=== PATIENT | male | born 1980 | race American Indian/Alaskan Native ===

== ENCOUNTER 2019-02-13 17:37 | Emergency (ER) | payer OTHER ==
[2019-02-13 18:08] VITALS: BP 122/84; PULSE 88; RESP 19; TEMP 98.8; O2SAT 98
[2019-02-13] MEDS ORDERED: Lidocaine Hydrochloride 10 ML INJ ONE (18:14)
[2019-02-13] MEDS ORDERED: Lidocaine 1% Inj (20ml) INFIL ONE (18:16)
[2019-02-13] MEDS ORDERED: Tdap Vaccine 0.5 ml Vial (10-64 yrs) IM ONE ×2 (18:19→18:25)
--- NOTE | 2019-02-13 18:21 | C.PDOC ---
History Of Present Illness 38 y/o male presents to the ER complaining of laceration to right hand. Patient states that he cut his hand while he was cleaning a grill. Patient denies having fever,chills, and drainage. Time Seen by Provider: 02/13/19 18:07 Chief Complaint (Nursing): Abnormal Skin Integrity History Per: Patient History/Exam Limitations: no limitations Onset/Duration Of Symptoms: Hrs Current Symptoms Are (Timing): Still Present Severity: Moderate Past Medical History Reviewed: Historical Data, Nursing Documentation, Vital Signs Vital Signs: Last Vital Signs Temp 98.8 F 02/13/19 18:01 Pulse 88 02/13/19 18:01 Resp 19 02/13/19 18:01 BP 122/84 02/13/19 18:01 Pulse Ox 98 02/13/19 18:01 - Medical History PMH: No Chronic Diseases Surgical History: No Surg Hx Family History: States: No Known Family Hx - Social History Hx Alcohol Use: Yes Hx Substance Use: Yes - Immunization History Hx Tetanus Toxoid Vaccination: No Hx Influenza Vaccination: No Hx Pneumococcal Vaccination: No Review Of Systems Except As Marked, All Systems Reviewed And Found Negative. Constitutional: Negative for: Fever, Chills Skin: Positive for: Other (laceration to right hand) Physical Exam - Physical Exam Appears: Non-toxic, No Acute Distress Skin: Normal Color, Warm, Dry, Other (4 cm laceration to dorsum of right hand between 2nd and 3rd digits involving subcutaneous tissue) Head: Atraumatic, Normacephalic Eye(s): bilateral: Normal Inspection Nose: Normal Oral Mucosa: Moist Neck: Supple Chest: Symmetrical Extremity: Normal ROM (no decreased flexion or extension in right hand), Capillary Refill (< 2 seconds) Neurological/Psych: Oriented x3, Normal Speech ED Course And Treatment O2 Sat by Pulse Oximetry: 98 (RA) Pulse Ox Interpretation: Normal Laceration - Laceration Repair Right Hand Wound Length (In cm): 4 cm Description Of Wound: Linear Wound Cleansed With: Betadine, Sterile Saline Anesthesia: Lidocaine 2% Wound Examination: Irrigated With Saline, No FB With Wound Exploration Wound Closure: [place] (7 bhavesh) Wound Complexity: Simple Medical Decision Making Medical Decision Making: R hand dorsum lac 4 cm closed with bhavesh motrin Tdap Disposition Doctor Will See Patient In The: Office Counseled Patient/Family Regarding: Studies Performed, Diagnosis - Disposition Referrals: [facility] [Outside] Leopoldo Faustin [facility] [Outside] [facility] [Outside] Disposition: HOME/ ROUTINE Disposition Time: 18:20 Condition: GOOD Additional Instructions: keep hand clean and dry Staple removal in 7 days TdAP given motrin/ice packs to the hand area as needed for local pain Instructions: Laceration Repair With Bhavesh (DC) Forms: Leopoldo Faustin (E[place]ian) - Clinical Impression Clinical Impression: Hand laceration - Scribe Statement The provider has reviewed the documentation as recorded by the Rachelibjose Villafuerte Provider Attestation: All medical record entries made by the Scribe were at my direction and pe rsonally dictated by me. I have reviewed the chart and agree that the record accurately reflects my personal performance of the history, physical exam, medical decision making, and the department course for this patient. I have also personally directed, reviewed, and agree with the discharge instructions and disposition.
[2019-02-13] MEDS ORDERED: Bacitracin 500 Units/gm Oint Foilpak UD ONE (18:24)
== END 2019-02-13 18:34 | disposition home or self-care (01) ==
LOC: C.ER 17:37
DX: S61.411A Laceration without foreign body of right hand, initial encounter (principal); W45.8XXA Other foreign body or object entering through skin, initial encounter; Z23 Encounter for immunization